=== PATIENT | female | born 1960 | race Caucasian/White ===

== ENCOUNTER 2025-01-02 13:31 | Inpatient (IN) ==
[2025-01-02 14:26] LABS: Hematocrit (blood only) 33.5 % (37.0-47.0); Hemoglobin 12.1 g/dL (12.0-16.0); Immature Granulocytes # (auto) 0.07 K/uL (0.01-0.20); Immature Granulocytes % (auto) 0.4 %; Mean Corpuscular Hemoglobin 37.1 pg (25.0-34.0); Mean Corpuscular Volume 102.8 fL (80.0-100.0); Platelet Count 235 K/uL (130-400); RDW Standard Deviation 56.8 fL (36.4-46.3); Red Blood Count 3.26 M/uL (4.20-5.40); White Blood Count 16.09 K/ul (4.8-10.8)
[2025-01-02 14:46] LABS: Alanine Aminotransferase 30.0 U/L (7-52); Albumin Globulin Ratio 0.5 (0.9-2); Albumin Level 2.6 gm/dl (3.4-5.0); Alkaline Phosphatase 143.0 U/L (34-104); Anion Gap 11.0 (3-11); Bilirubin,Total 5.7 mg/dl (0.2-1.0); Blood Urea Nitrogen 5.0 mg/dl (6-23); Calcium 8.4 mg/dl (8.6-10.3); Carbon Dioxide 21.0 mmol/L (21-32); Chloride 102.0 mmol/L (98-107); Creatinine Clr Calc Pharmacy 98.4 ml/min; Globulin 5.1 gm/dl (2.5-4.0); Glucose 94.0 mg/dl (70-99(Fasting)); Lipase 15.0 U/L (11-82); Potassium 3.4 mmol/L (3.5-5.1); Sodium 134.0 mmol/L (136-145); Total Protein 7.7 gm/dl (6.0-8.3)
[2025-01-02] MEDS: LIDOCAINE 1%/EPINEPHRINE 1:100,000 50 ML VIAL INFIL ONE (16:36)
[2025-01-02] MEDS: cefTRIAXone SODIUM 2,000 MG/50 ML BAG IV STA (16:36)
--- NOTE | 2025-01-02 16:58 | Emergency Department Note ---
Impression & Plan Decompensated hepatic cirrhosis, Abdominal pain, Alcoholic cirrhosis of liver with ascites, Hypervolemia, Hyponatremia, Hypokalemia, Hypoalbuminemia, Hyperbilirubinemia, Alcohol use disorder ED Provider Note NAME: MANISHA BLUM AGE: 64 SEX: F : 1960 ARRIVES VIA: Walk-In INFORMANT: Patient, sister ED PROVIDER(S): Alvaro Gomez DO CHIEF COMPLAINT: abnormal outpatient imaging HPI: This is a 64-year-old female with the PMHx of GERD, anxiety/depression and alcohol use disorder presenting to [facility] for further evaluation of abnormal outpatient imaging. Patient is accompanied by her sister who provide additional history. The patient states that she is here as she was advised by her primary care doctor to report to the emergency department for further evaluation. Patient notes that she has had abdominal pain and swelling over the course the last month. She also reports that the pain has worsened over the past few days. She states she now has lower extremity edema. Patient states she does not feel well. Patient states that she was told that she has cirrhosis and abnormal CT/ultrasound findings. Patient states she does have significant alcohol use disorder. She notes that she drinks 3 spritzer's in the afternoons and then she proceeds to drink red wine in the evening. She states that this is at least 4 large glasses of wine every night. Patient states that she last had a drink approximately 1 week ago. She states that she has never been in alcohol withdrawal before. She has never been admitted for such things. Patient states that her family and friends have noticed scleral icterus but she has not noticed her skin being yellow. They deny fever or chills. No cough or congestion. Denies chest pain or palpitations. No shortness of breath. They deny nausea and vomiting. No urinary complaints. No recent changes in bowel movements. Patient denies recent changes in medications or OTC supplements. Patient offers no other complaints, today. ADDITIONAL HISTORY OBTAINED: Per HPI Chronic Medical/Social Conditions Affecting Care: Per HPI PAST MEDICAL HISTORY: See Below PAST SURGICAL HISTORY: See Below FAMILY HISTORY: See Below SOCIAL HISTORY: See Below HOME MEDICATIONS: See Below ALLERGIES: See Below VITALS: See Below PHYSICAL EXAMINATION: GENERAL: Sitting up in bed, alert, well appearing, well nourished, no distress, non-toxic EYE EXAM: normal conjunctiva. PERRL and EOM's grossly intact. scleral icterus. OROPHARYNX: no exudate, no erythema, lips, buccal mucosa, and tongue normal and mucous membranes are moist NECK: supple, no nuchal rigidity, no adenopathy, non-tender LUNGS: Clear to auscultation. Normal chest wall mechanics HEART: no murmurs, regular rate, regular rhythm ABDOMEN: abdomen soft But distended with a positive fluid wave. Diffuse tenderness to palpation. No rebound or rigidity. BACK: Back is symmetrical on inspection and there is no deformity, no midline tenderness, no CVA tenderness. SKIN: no rashes and no bruising UPPER EXTREMITIES: upper extremities are grossly normal. I could not induce asterixis. LOWER EXTREMITIES: No pitting edema. NEURO EXAM: Normal sensorium, GCS 15, normal speech, no gross weakness of arms, no gross weakness of legs. MEDICAL DECISION MAKING: Differential diagnoses includes but not limited to new onset alcohol liver cirrhosis, SBP, fluid overload, decompensated liver cirrhosis complicated by ascites, hepatic encephalopathy, alcohol withdrawal syndrome, electrolyte derangements, dehydration, choledocholithiasis, cholangitis, CHF In summary, this is a 64 year old female who presented with abnormal outpatient imaging that is consistent with newly diagnosed alcoholic liver cirrhosis. Differential as above. Nursing notes and pertinent past medical records reviewed. Vital signs reviewed and the patient is afebrile and HDS. History and presentation revealed she has been working with her PCP for ongoing swelling of the lower extremities and abdomen. She now has abdominal pain. I did obtain [facility] records through care management for this patient. Patient has a new diagnosis of likely alcoholic liver cirrhosis. She has had imaging of her abdomen including a CT abdomen/pelvis as well as a liver ultrasound. Liver ultrasound shows nodularity of the hepatic contours consistent with cirrhosis. There is steatosis present. Splenomegaly noted. Does have cholelithiasis with moderate size ascites and dilated CBD to [address] abdomen/pelvis Confirm presence of cirrhotic liver with volume ascites and splenomegaly. There is an apparent splenic vein occlusion with varices. Radiology did recommend MRCP for further evaluation. Physical examination revealed diffuse lower extremity edema accompanied by abdominal distention and fluid wave. Patient's physical exam findings today are consistent with likely decompensated liver cirrhosis complicated by ascites. I am concerned for SBP. I discussed the risk and benefits of proceeding with a diagnostic paracentesis for further evaluation. The patient is agreeable to this. I do not however feel strongly about therapeutic paracentesis. The patient has never had this procedure performed before. I do feel that a diagnostic paracentesis is warranted rather than removing multiple amounts of fluid from the patient's abdomen. She would not be used to this procedure. I feel that diuresis would be an appropriate observation rather than removal of the ascites. Patient agreeable to this. While the patient does have dilatation of the CBD. I do not suspect Christine Hester cholelithiasis or cholangitis. She is not febrile. She does not appear infectious. I feel these findings on imaging are more likely to be related to her liver cirrhosis rather than acute pathology of the hepatobiliary system and gallstones. Patient will be covered with 2 g of ceftriaxone to cover SBP. If felt strongly regarding infectious pathology of the hepatobiliary system, the medicine team will be able to add on IV Flagyl for anaerobic coverage. I will order the patient's MRCP while in the emergency department. Diagnostics interpreted by me include cardiac monitoring as listed below: -Cardiac Monitoring: An order was placed for continuous cardiac monitoring. The monitor shows a rate of 80-90s with regular rhythm. Patient completed laboratory studies and imaging. Results independently interpreted by me are Leukocytosis present. The patient does not have acute anemia, MCV is elevated. Do believe this is likely findings related to her alcohol use disorder as well. She has multiple electrolyte derangements including minimal hyponatremia and hypokalemia. Kidney function is normal. She has elevation in bilirubin as well as AST and ALT. Patient has hypoalbuminemia present. Patient underwent paracentesis as below. This was diagnostic. She tolerated the procedure. Fluid sent for analysis. She was covered for SBP with 2 g of ceftriaxone. Patient does not need alcohol withdrawal treatment at this time as she stopped drinking approximately 1 week ago. She has no symptoms at this time. She is out of the window for acute alcohol withdrawal. Patient will need follow-up on further labs as well as her MRCP as an inpatient. Patient will likely need diuresis and initiation of medications to support her with new diagnosis of likely alcoholic liver cirrhosis. Ultimately, the decision was made to admit the patient for newly diagnosed alcoholic liver cirrhosis with concerns for decompensation complicated by ascites and possible SBP. I discussed the case with the hospitalist service via telephone/Tiger[employer] and they are agreeable to admit the patient to their services. Based on the above, including the patient's age, coexisting illnesses, labs, imaging, and exam findings the decision to treat as an inpatient. I discussed the patient with the hospitalist team who recommended admission to their services. They received the medications, treatments, interventions indicated above and their condition remained gaurded. I discussed my findings with the patient and their family and they understand and agree with the treatment plan. All patient / family questions were answered to their satisfaction. Consults/Care Managements Discussions: Per MDM ER treatment provided: See above Procedures: Diagnostic paracentesis noted as below. Critical Care: None The chart was completed utilizing [employer] voice recognition software. Grammatical errors, random word insertions, pronoun errors, and incomplete sentences are an occasional consequence of this system due to software limitations, ambient noise, and hardware issues. Any formal questions or concerns about the content, text, or information contained within the body of this dictation should be directly addressed to the physician for clarification. Past Med/Surg History Problem List (Updated 01/05/25 @ 14:34 by Alvaro Gomez DO) Alcohol use disorder (Acute) Hyperbilirubinemia (Acute) Hypoalbuminemia (Acute) Hypokalemia (Acute) Hyponatremia (Acute) Hypervolemia (Acute) Alcoholic cirrhosis of liver with ascites (Acute) Abdominal pain (Acute) Decompensated hepatic cirrhosis (Acute) Alcohol abuse Alcoholic cirrhosis Abdominal pain Surgical History (Updated 01/02/25 @ 18:04 by ROBERT Shearer) No pertinent past surgical history Family History (Updated 01/02/25 @ 18:05 by ROBERT Shearer) Sister Hypertension Social History Smoking Status: Never smoker Hx Alcohol Use: Yes Alcohol type: wine Hx Substance Use: No Preferred Language: Tunisian Communication Ability: Unable Resaw Carriage Operator Required: No Beliefs That Will Affect Care: None Current Living Situation: Alone Feels Safe at Home: Yes Assistive Devices: None Allergies Allergies Allergy/AdvReac Type Severity Reaction Status Date / Time No Known Allergies Allergy Unverified 01/02/25 17:13 Home Meds Home Medications Medication Instructions Recorded Confirmed escitalopram oxalate 10 mg tablet 10 mg PO QAM 01/02/25 01/02/25 omeprazole 20 mg capsule,delayed 20 mg PO DAILYBB 01/02/25 01/02/25 release Previous Rx's Medication Instructions Recorded furosemide 20 mg tablet 20 mg PO QAM #30 tabs 01/05/25 lactulose 10 gram/15 mL oral 20 g (30 mL) PO DAILY #473 mL 01/05/25 solution potassium chloride 10 mEq 10 meq PO DAILY #30 tabs 01/05/25 tablet,extended release spironolactone 50 mg tablet 50 mg PO DAILY #30 tabs 01/05/25 Results & Data (ED) Vital Signs Vital Signs - 24 hr 01/02/25 13:38 01/02/25 16:54 Temperature 36.9 C Temperature Source Temporal Artery Scan Pulse Rate 92 H 93 H Respiratory Rate 18 Respiratory Effort / Characteristics Non-Labored Spontaneous Respiratory Depth Normal Respiratory Pattern Regular Blood Pressure 140/77 Blood Pressure Mean 98 Blood Pressure Position Sitting Pulse Oximetry 99 Oxygen Delivery Method Room Air Sepsis Recent Fever Within 48 Hours No Sepsis New/Unexplained Change in Mental Status N/A Sepsis Action Taken by Nursing No Action Required Laboratory Data 01/05/25 06:16 01/05/25 06:16 Lab Results 01/02/25 01/02/25 Range/Units 14:04 16:55 WBC 16.09 H (4.8-10.8) K/ul RBC 3.26 L (4.20-5.40) M/uL Hgb 12.1 (12.0-16.0) g/dL Hct 33.5 L (37.0-47.0) % MCV 102.8 H (80.0-100.0) fL MCH 37.1 H (25.0-34.0) pg MCHC 36.1 H (32.0-36.0) g/dL RDW Std Deviation 56.8 H (36.4-46.3) fL RDW Coeff of Tala 15.0 H (11.5-14.5) % Plt Count 235 (130-400) K/uL MPV 9.9 (9.4-12.4) fL Immature Gran % (Auto) 0.4 % Neut % (Auto) 77.5 % Lymph % (Auto) 9.6 % Kaufman % (Auto) 10.8 % Eos % (Auto) 0.8 % Baso % (Auto) 0.9 % Neut # (Auto) 12.48 H (1.40-6.50) K/uL Lymph # (Auto) 1.54 (1.20-3.40) K/uL Kaufman # (Auto) 1.73 H (0.11-0.59) K/uL Eos # (Auto) 0.13 (0.00-0.50) K/uL Baso # (Auto) 0.14 (0.00-0.20) K/uL Immature Gran # (Auto) 0.07 (0.01-0.20) K/uL Sodium 134 L (136-145) mmol/L Potassium 3.4 L (3.5-5.1) mmol/L Chloride 102 (98-107) mmol/L Carbon Dioxide 21 (21-32) mmol/L Anion Gap 11 (3-11) BUN 5 L (6-23) mg/dl Creatinine 0.62 (0.6-1.2) mg/dl Est Cr Clr Drug Dosing 98.4 ml/min eGFR 100.00 BUN/Creatinine Ratio 8.1 L (10-20) Glucose 94 (70-99(Fasting)) mg/dl Calcium 8.4 L (8.6-10.3) mg/dl Total Bilirubin 5.7 H (0.2-1.0) mg/dl Direct Bilirubin 2.5 H (0-0.2) mg/dl AST 94 H (13-39) U/L ALT 30 (7-52) U/L Alkaline Phosphatase 143 H (34-104) U/L Total Protein 7.7 (6.0-8.3) gm/dl Albumin 2.6 L (3.4-5.0) gm/dl Globulin 5.1 H (2.5-4.0) gm/dl Albumin/Globulin Ratio 0.5 L (0.9-2) Lipase 15 (11-82) U/L Fluid Neutrophils % 8 % Fluid Lymphocytes % 10 % Fluid Meso/Macro/Kaufman % 82 % Fluid Comment Peritoneal Color Yellow Peritoneal Appearance Clear Peritoneal WBC (Auto) 227 (0-300) /ul Peritoneal RBC (Auto) < 2000 /uL Peritoneal Tot Protein < 3.0 gm/dl Peritoneal Albumin < 1.5 gm/dl Ethyl Alcohol mg/dL < 10.0 (<10.0) mg/dl Hep Bs Antigen Negative (Negative) Hepatitis C Antibody Negative (Negative) Administered Medications Discontinued Medications Escitalopram Oxalate (Escitalopram Oxalate 10 Mg Tab) 10 mg PO QAM NIDIA Stop: 02/02/25 08:59 Last Admin: 01/05/25 08:49 Dose: 10 mg Documented By: Admin: 01/04/25 07:55 Dose: 10 mg Documented By: mahogany Admin: 01/03/25 08:34 Dose: 10 mg Documented By: mahogany Furosemide (Furosemide 20 Mg Tab) 20 mg PO QAM NIDIA Stop: 02/03/25 09:59 Last Admin: 01/05/25 08:48 Dose: 20 mg Documented By: Admin: 01/04/25 07:55 Dose: 20 mg Documented By: mahogany Ceftriaxone Sodium (Rocephin) 2,000 mg in 50 mls @ 100 mls/hr IV NOW STA Stop: 01/02/25 16:50 Last Infusion: 01/02/25 17:34 Dose: Infused Documented By: jim Admin: 01/02/25 16:36 Dose: 100 mls/hr Documented By: SOULEYMANE Pantoprazole Sodium (Protonix) 40 mg in 10 mls @ 5 mls/min IV BID NIDIA Stop: 02/02/25 08:59 Last Admin: 01/03/25 08:34 Dose: 5 mls/min Documented By: mahogany Pantoprazole Sodium (Protonix) 40 mg in 10 mls @ 5 mls/min IV NOW STA Stop: 01/02/25 18:05 Last Admin: 01/02/25 18:21 Dose: 5 mls/min Documented By: jim Lactulose (Lactulose Syrup 20 Gm/30 Ml Udc) 20 gm PO DAILY NIDIA Stop: 02/02/25 09:59 Last Admin: 01/05/25 08:47 Dose: 20 gm Documented By: Admin: 01/04/25 07:50 Dose: Not Given Documented By: mahogany Admin: 01/03/25 10:54 Dose: 20 gm Documented By: mahogany Lidocaine/Epinephrine (Lidocaine 1%/Epinephrine 1:100,000 50 Ml Vial) 50 ml INFIL NOW ONE Stop: 01/02/25 16:27 Last Admin: 01/02/25 16:36 Dose: 50 ml Documented By: [id number] Pantoprazole Sodium (Pantoprazole 40 Mg Tab) 40 mg PO QAM NIDIA Stop: 02/03/25 08:59 Last Admin: 01/05/25 08:48 Dose: 40 mg Documented By: Admin: 01/04/25 07:55 Dose: 40 mg Documented By: mahogany Phytonadione (Phytonadione 5 Mg Tab) 10 mg PO NOW ONE Stop: 01/03/25 12:27 Last Admin: 01/03/25 13:24 Dose: 10 mg Documented By: mahogany Phytonadione (Phytonadione 5 Mg Tab) 10 mg PO ONE ONE Stop: 01/04/25 13:01 Last Admin: 01/04/25 14:19 Dose: 10 mg Documented By: mahogany Potassium Chloride (Potassium Chloride Crtab 20 Meq Tabcr) 40 meq PO NOW STA Stop: 01/02/25 17:27 Last Admin: 01/02/25 17:34 Dose: 40 meq Documented By: jim Potassium Chloride (Potassium Chloride Crtab 20 Meq Tabcr) 40 meq PO NOW STA Stop: 01/05/25 07:23 Last Admin: 01/05/25 08:48 Dose: 40 meq Documented By: CJ Spironolactone (Spironolactone 25 Mg Tab) [facility] Stop: 02/03/25 09:59 Last Admin: 01/05/25 08:47 Dose: 50 mg Documented By: Admin: 01/04/25 07:54 Dose: 50 mg Documented By: mahogany Imaging Data Radiologist's Impression: Cholangiopancreatography MRI 01/02/25 16:26 Exam(s): MRI MRCP EXAM: MR Abdomen Without Intravenous Contrast, MRCP Protocol CLINICAL HISTORY: Reason for exam: Eval for transaminitis, CBD, likely alcoholic liver. TECHNIQUE: Multiplanar magnetic resonance images of the abdomen without intravenous contrast using MRCP protocol. COMPARISON: No relevant prior studies available. FINDINGS: Exam is limited due to motion artifact. Exam is further limited due to lack of contrast. Bile ducts: The common bile duct measured 5 mm stone. No definite filling defect is noted.. Gallbladder: The gallbladder is distended containing a filling defects.. Liver: The liver is enlarged and of diffuse signal abnormality. There are rounded lesions within the liver, the largest of which measures 1.5 cm.. Pancreas: . No ductal dilation. Spleen: No splenomegaly. Adrenals: The adrenal glands are not clearly visualized. Kidneys and ureters: No hydronephrosis. Stomach and bowel: There is a small hiatal hernia. The stomach is decompressed. There is air and stool noted in the colon. Fluid: There is a large amount of free fluid in the upper abdomen. Soft tissues: There is soft tissue edema noted.. IMPRESSION: Limited exam. The gallbladder is distended containing calculi. The liver is enlarged and of diffuse signal at mild which may be due to fatty infiltration and/or hepatocellular disease. Lesions within the liver may represent cysts. Other possibilities cannot be excluded on this noncontrast study. Ascites. There is a small hiatal hernia. Possible anasarca. Electronically signed by: Niles Collins MD 01/03/25 01:02 AM Discharge Plan Visit Data Chief Complaint: Referred by Doctor Stated Complaint: REF BY DOC, CIROSIS OF THE LIVER ED Provider: Alvaro Gomez Discharge Problem: Decompensated hepatic cirrhosis, Abdominal pain, Alcoholic cirrhosis of liver with ascites, Hypervolemia, Hyponatremia, Hypokalemia, Hypoalbuminemia, Hyperbilirubinemia, Alcohol use disorder Patient Disposition: Admitted As Inpatient Condition: Serious Discharge Instructions Interventions: ED Discharge Assessment Last Done: 01/02/25 19:24 Procedures Paracentesis Time Out Performed: Yes Local Anesthetic: lidocaine 1% Amount of anesthesia used (mL): 3 Fluid: cloudy and sent to lab for analysis Post Procedure Exam: awake, alert, normal BP, normal HR and normal SpO2 Patient Tolerated Procedure: well and no complications Complications: none
[2025-01-02 17:25] LABS: Appearance Peritoneal Fluid Clear; Color Peritoneal Fluid Yellow; RBC Peritoneal Fluid Auto < 2000 /uL; WBC Peritoneal Fluid Auto 227 /ul (0-300)
--- NOTE | 2025-01-02 17:31 | History & Physical Report ---
Date of Service January 02, 2025 Assessment & Plan (1) SBP (spontaneous bacterial peritonitis): (2) Abdominal pain: (3) Alcoholic cirrhosis: (4) Alcohol abuse: Plan 64F with newly diagnosed alcoholic cirrhosis with SBP presents as recc by her PCP; diagnostic paracentesis performed in ED; started on IV Rocephin, Protonix. MRCP ordered; NPO and GI Consult. #Alcohol Cirrhosis with SBP: #Abdominal pain: Leukocytosis 16.09; check lactate CTAP indicative of cirrhotic liver and portal hypertension; moderate ascites and splenomegaly Diagnostic paracentesis; 100cc removed in ED and sent for path Rocephin started in ED; continue for now and adjust as needed TBili 5.7, Direct Bili 2.5 MRCP ordered Protonix 40 mg IV BID ordered GI Consult placed #Hypokalemia: Serum K+ 3.4; replace with 40mEq PO Trend BMP in AM #Depression: Takes Lexapro; continue #GERD: Takes omeprazole; hold Disposition: PCP: Dr. Davis Code Status: Full VTE Prophylaxis: Teds and SCD's for now I spent a total of 79 minutes coordinating, documenting, and providing care for this patient excluding time spent inthe performance of separately billed services or time spent by another provider/QHP. History of Present Illness Chief Complaint: abdominal pain Primary Care Provider: Dasia Davis MD Ms. Limon is a 64 year old female that presented to the [facility] as recommended by her PCP Dr. Davis. She has newly diagnosed alcoholic liver cirrhosis. She has moderate ascites, jaundice, splenomegaly, and dilated CBD measuring 7mm. Additional PMH includes alcohol abuse, depression and GERD. Reportedly, she states that she started to have abdominal bloating and generalized abdominal pain with bilateral lower extremity swelling a few weeks ago, prompting her to go to her PCP. In the ED, she has leukocytosis 16.09, Total Bilirubin 5.4, Direct Bilirubin 2.5, hypokalemia 3.4. A CTAP was performed on 12/30 as an outpatient and indicative of cirrhotic liver and portal hypertension; moderate ascites and splenomegaly She reportedly has drank 2-3 spritzers in the early afternoon followed by ONE bottle of wine nightly for the last decade; having not missed many days of drinking. Her last drink was 7 days ago. She has not had any symptoms of alcohol withdrawal; no tremors, or agitation. She does not have the urge to drink at this time. She wishes to stop completely and was unaware of how things were progressing negatively. On examination she is AAOx3, able to hold meaningful conversation, has jaundiced sclera; leathery skin, ankle edema, Lungs CTA, faint S1/S2, (+) fluid wave test Patient will be admitted for further evaluation and management of her alcohol cirrhosis with SBP; continue IV Rocephin, Protonix IV, Hepatitis panel, replenish K+, keep NPO for now, MRCP ordered and formal GI Consult placed. Please see A/P for further details. Allergies Allergy/AdvReac Type Severity Reaction Status Date / Time No Known Allergies Allergy Unverified 01/02/25 17:13 Home Medications Medication Instructions Recorded Confirmed Type escitalopram oxalate 10 mg tablet 10 mg PO QAM 01/02/25 01/02/25 History omeprazole 20 mg capsule,delayed 20 mg PO DAILYBB 01/02/25 01/02/25 History release Past Med/Surg History Problem List (Updated 01/02/25 @ 17:29 by ROBERT Shearer) Alcohol abuse Alcoholic cirrhosis Abdominal pain SBP (spontaneous bacterial peritonitis) Surgical History (Updated 01/02/25 @ 18:04 by ROBERT Shearer) No pertinent past surgical history Family History (Updated 01/02/25 @ 18:05 by ROBERT Shearer) Sister Hypertension Social History Smoking Status: Never smoker Preferred Language: Qatari Feels Safe at Home: Yes Review of Systems Review of Systems: Neuro: (-) Falls, trauma, slurred speech HEENT: (-) CASTELLANO, dizziness, dysphagia, visual or auditory changes CV: (-) CP, palpitations, (+) LE swelling Resp: (-) SOB GI: (-) appetite changes, N/V/D, bowel changes : (-) urinary changes Skin: (-) rashes Psych: (-) anxiety, depression Physical Exam Physical Exam: Neuro: AAOx4, PERRLA, no aphagia, memory changes, CNII-XII grossly intact (+) sclera jaundice HEENT: head normocephalic, moist mucus membranes CV: S1/S2, (-) M/G/R, (+) LE BL edema, cap refill < 3 seconds Resp: Lungs CTA in all bowens. On RA GI: Abdomen distended, tender on palpation, (+) fluid wave test, Ax4 bowel sounds, (-) CVA tenderness Musculoskeletal: 5/5 B/L UE strength, 5/5 B/L LE strength. No gait disturbance Skin: (-) rashes , (-) erythema. (+) leathery skin Psych: euthymic mood Results & Data Results & Data Vital Signs (Past 12 Hours) Vital Signs Temp Pulse Resp BP Pulse Ox O2 Del Method 01/02/25 16:54 93 H 01/02/25 13:38 36.9 C 92 H 18 140/77 99 Room Air Laboratory Results Short CBC 01/02/25 Range/Units 14:04 WBC 16.09 H (4.8-10.8) K/ul Hgb 12.1 (12.0-16.0) g/dL Hct 33.5 L (37.0-47.0) % Plt Count 235 (130-400) K/uL BMP 01/02/25 14:04 Sodium 134 L Potassium 3.4 L Chloride 102 Carbon Dioxide 21 BUN 5 L Creatinine 0.62 Glucose 94 Calcium 8.4 L Liver Function 01/02/25 Range/Units 14:04 Total Bilirubin 5.7 H (0.2-1.0) mg/dl Direct Bilirubin 2.5 H (0-0.2) mg/dl AST 94 H (13-39) U/L ALT 30 (7-52) U/L Alkaline Phosphatase 143 H (34-104) U/L Albumin 2.6 L (3.4-5.0) gm/dl Code Status & VTE Plan Code Status Full Code in the event of cardiac or respiratory arrest VTE Prophylaxis Plan VTE Prophylaxis will be ordered: Yes Supervising Physician Co-Signing Physician Notes patient comes in due to recommendation from PCP due to concern of newly diagnosed alcoholic cirrhosis and SBP. Continue with PPI and Rocephin. Follow- up abdominal fluid studies and culture. Consult GI. Monitor and replete electrolytes. On exam: Patient on room air, 2+ BLE edema, abdomen with healed surgical scar, distended abdomen, epigastric tenderness on exam. Rest of examination as above. Total time spent independently: 21 minutes. I have seen and examined the patient and have discussed the case with the provider above. I agree with the assessment and plan as stated.
[2025-01-02] MEDS: POTASSIUM CHLORIDE CRTAB 20 MEQ TABCR PO STA (17:34)
[2025-01-02 17:58] LABS: Albumin Peritoneal Fluid < 1.5 gm/dl
[2025-01-02] MEDS: PANTOprazole 40 MG/10 ML SYR IV STA (18:21)
[2025-01-02 19:24] LABS: Hep B Surface Ag with confirm Negative (Negative)
[2025-01-02 19:29] LABS: Hep C Ab Rflx HepCQuant RNA Negative (Negative)
[2025-01-02] MEDS ORDERED: POLYETHYLENE (MIRALAX) 17 GM PACK PO PRN (19:49)
[2025-01-02] MEDS ORDERED: ACETAMINOPHEN 325 MG TAB PO PRN (19:49)
[2025-01-02] MEDS ORDERED: ONDANSETRON INJ 2 MG/ML 2 ML VIAL IV PRN (19:49)
[2025-01-02] MEDS ORDERED: MAGNESIUM HYDROXIDE SUSP 30 ML UDC PO PRN (19:49)
--- NOTE | 2025-01-03 01:03 | Magnetic Resonance Report ---
Exam(s): MRI MRCP EXAM: MR Abdomen Without Intravenous Contrast, MRCP Protocol CLINICAL HISTORY: Reason for exam: Eval for transaminitis, CBD, likely alcoholic liver. TECHNIQUE: Multiplanar magnetic resonance images of the abdomen without intravenous contrast using MRCP protocol. COMPARISON: No relevant prior studies available. FINDINGS: Exam is limited due to motion artifact. Exam is further limited due to lack of contrast. Bile ducts: The common bile duct measured 5 mm stone. No definite filling defect is noted.. Gallbladder: The gallbladder is distended containing a filling defects.. Liver: The liver is enlarged and of diffuse signal abnormality. There are rounded lesions within the liver, the largest of which measures 1.5 cm.. Pancreas: . No ductal dilation. Spleen: No splenomegaly. Adrenals: The adrenal glands are not clearly visualized. Kidneys and ureters: No hydronephrosis. Stomach and bowel: There is a small hiatal hernia. The stomach is decompressed. There is air and stool noted in the colon. Fluid: There is a large amount of free fluid in the upper abdomen. Soft tissues: There is soft tissue edema noted.. IMPRESSION: Limited exam. The gallbladder is distended containing calculi. The liver is enlarged and of diffuse signal at mild which may be due to fatty infiltration and/or hepatocellular disease. Lesions within the liver may represent cysts. Other possibilities cannot be excluded on this noncontrast study. Ascites. There is a small hiatal hernia. Possible anasarca. Electronically signed by: Niles Collins MD 01/03/25 01:02 AM
[2025-01-03 06:01] LABS: Hematocrit (blood only) 28.1 % (37.0-47.0); Hemoglobin 10.1 g/dL (12.0-16.0); Mean Corpuscular Hemoglobin 37.0 pg (25.0-34.0); Mean Corpuscular Volume 102.9 fL (80.0-100.0); Platelet Count 191 K/uL (130-400); RDW Standard Deviation 55.0 fL (36.4-46.3); Red Blood Count 2.73 M/uL (4.20-5.40); White Blood Count 12.50 K/ul (4.8-10.8)
[2025-01-03 06:23] LABS: Anion Gap 9.0 (3-11); Blood Urea Nitrogen 5.0 mg/dl (6-23); Calcium 8.0 mg/dl (8.6-10.3); Carbon Dioxide 22.0 mmol/L (21-32); Chloride 105.0 mmol/L (98-107); Creatinine Clr Calc Pharmacy 106.4 ml/min; Glucose 80.0 mg/dl (70-99(Fasting)); Magnesium 2.0 mg/dl (1.7-2.4); Potassium 3.8 mmol/L (3.5-5.1); Sodium 136.0 mmol/L (136-145)
[2025-01-03 08:30] LABS: Lymphocytes, Fluid 10 %; Mono,Macrophage,Mesothelial 82 %; Neutrophils, Fluid 8 %
[2025-01-03] MEDS: PANTOprazole 40 MG/10 ML SYR IV SCH (08:34)
[2025-01-03] MEDS: ESCITALOPRAM OXALATE 10 MG TAB PO SCH (08:34)
[2025-01-03 09:27] LABS: Appearance Urine Slightly Cloudy (Clear); Glucose Urine UA Trace (Negative)
[2025-01-03 09:36] LABS: Epithelial Cell Urine >20 /hpf (0-2)
--- NOTE | 2025-01-03 09:55 | Hospitalist Progress Note ---
Date of Service January 03, 2025 Assessment & Plan (1) SBP (spontaneous bacterial peritonitis): (2) Abdominal pain: (3) Alcoholic cirrhosis: (4) Alcohol abuse: Plan 64F with newly diagnosed alcoholic cirrhosis with SBP presents as recc by her PCP; diagnostic paracentesis performed in ED; started on IV Rocephin, Protonix. MRCP ordered; NPO and GI Consult. #Alcohol Cirrhosis -Diagnosed on admission -Drinks about 7-8 alcoholic beverages per day. last drink was over a week ago -Low suspicion for alcoholic hepatitis. PT/INR not yet checked but suspect a low Maddrey's discriminant function score -Cannot calculate MELD score either without PT/INR -T bili 5.7 -S/p diagnostic paracentesis on 12/23 -Peritoneal fluid with only 8% PMNs, WBC 227 -Typically with bacterial peritonitis, PMNs are around 50% with WBC >230 -Low suspicion for SBP at this time. She also lacks any significant abd pain, fever -However she does have leukocytosis, albeit improving, without a clear explanation -No asterixis or confusion to suggest hepatic encephalopathy -No s/s acute blood loss to suggest variceal bleeding Plan -Continue CTX until peritoneal fluid culture returns. If negative for growth, this will r/o peritonitis -Start aldactone/lasix with a ratio of 5/2--- aldactone 50mg daily+ lasix 20mg daily if blood pressure tolerates. Holding parameters placed -Start lactulose with goal of 2-3 loose BMs per day -She will need OP endoscopy for variceal surveillance -Check INR, CMP -Appreciate GI input. she will need to f/u with GI as OP -Resume diet. no indication for emergent endoscopy -Can stop IV protonix #Alcohol abuse -Last drink 1 week ago -Out of withdrawal window and no s/s withdrawal -She stated she will completely stop drinking #GERD -PPI I spent a total of 53 minutes coordinating, documenting, and providing care for this patient excluding time spent in the performance of separately billed services. This included personally reviewing all current laboratories and imaging studies, medical reconciliation, outpatient chart review and discussion with specialists Admission and Anticipated Discharge Date Admission Date: January 02, 2025 Subjective Feeling well today. hungry and wants to eat. Patient denies F/C, CP, palpitations, SOB, dyspnea, abd pain, N/V/D hematemesis melena brbpr Physical Exam Physical Exam: Vitals and labs reviewed General: Well appearing, NAD HEENT: EOMI, PERRLA Neck: Supple Cardiac: RRR no rubs gallops or murmurs Lungs: CTA no rhonchi wheezing or rales Abd: mild distention. No TTP. pos bowel sounds : Deffered MSK: Full ROM. No obvious deformities Ext: No Edema cyanosis Skin: Warm, Dry. slight jaundice Neuro: AOx3 No focal deficits. no asterixis Psych: Normal Mood Results & Data Results & Data Vital Signs (Past 12 Hours) Vital Signs Temp Pulse Pulse Resp BP BP Pulse Ox 01/03/25 08:00 87 01/03/25 07:32 36.6 C 92 H 16 98/60 L 100/47 L 95 01/03/25 03:02 36.8 C 89 16 100/65 96 01/02/25 22:30 36.8 C 86 20 106/62 96 O2 Del Method 01/03/25 08:00 01/03/25 07:32 Room Air 01/03/25 03:02 Room Air 01/02/25 22:30 Room Air Laboratory Results Abnormal lab results 01/02/25 01/03/25 01/03/25 Range/Units 14:04 05:20 08:57 WBC 16.09 H 12.50 H (4.8-10.8) K/ul RBC 3.26 L 2.73 L (4.20-5.40) M/uL Hgb 10.1 L (12.0-16.0) g/dL Hct 33.5 L 28.1 L (37.0-47.0) % MCV 102.8 H 102.9 H (80.0-100.0) fL MCH 37.1 H 37.0 H (25.0-34.0) pg MCHC 36.1 H (32.0-36.0) g/dL RDW Std Deviation 56.8 H 55.0 H (36.4-46.3) fL RDW Coeff of Tala 15.0 H 14.9 H (11.5-14.5) % Neut # (Auto) 12.48 H (1.40-6.50) K/uL [place] # (Auto) 1.73 H (0.11-0.59) K/uL Sodium 134 L (136-145) mmol/L Potassium 3.4 L (3.5-5.1) mmol/L BUN 5 L 5 L (6-23) mg/dl Creatinine 0.58 L (0.6-1.2) mg/dl BUN/Creatinine Ratio 8.1 L 8.6 L (10-20) Calcium 8.4 L 8.0 L (8.6-10.3) mg/dl Total Bilirubin 5.7 H (0.2-1.0) mg/dl Direct Bilirubin 2.5 H (0-0.2) mg/dl AST 94 H (13-39) U/L Alkaline Phosphatase 143 H (34-104) U/L Albumin 2.6 L (3.4-5.0) gm/dl Globulin 5.1 H (2.5-4.0) gm/dl Albumin/Globulin Ratio 0.5 L (0.9-2) Urine Protein 2+ H (Negative) Urine Glucose (UA) Trace H (Negative) Urine Ketones 2+ H (Negative) Urine Blood Trace-intact H (Negative) Urine Bilirubin 3+ H (Negative) Urine Urobilinogen Positive H (Negative) Urine RBC 3-5 H (0-2) /hpf Ur Epithelial Cells >20 H (0-2) /hpf Urine Bacteria 1+ H (None Seen) Urine Mucus Present A (None Prsent)
[2025-01-03] MEDS ORDERED: SPIRONOLACTONE 25 MG TAB PO SCH (10:00)
[2025-01-03] MEDS ORDERED: FUROSEMIDE 20 MG TAB PO SCH (10:00)
[2025-01-03 10:35] LABS: INR 2.0 (0.9-1.1); Prothrombin Time 20.3 Seconds (9.0-12.0)
[2025-01-03] MEDS: LACTULOSE SYRUP 20 GM/30 ML UDC PO SCH (10:54)
--- NOTE | 2025-01-03 12:01 | Gastrointestinal Consultation ---
Date of Consultation January 03, 2025 Assessment & Plan (1) Alcoholic cirrhosis: (2) Alcohol abuse: Plan 64yowf with h/o alcohol abuse anxiety and GERD is seen today on GI inpatient rounds for diagnosis of alcoholic cirrhosis, SBP and CBD stones. Clinically she reports a progression of abdominal pain, jaundice and anasarca over the last [address] abd/pelvis, US consistent with cirrhosis and portal hypertension. GI was consulted regarding new onset cirrhosis/Alcoholic hepatitis, SBP and CBD stones. (1) ? CBD stones - No stones within the duct noted on personal read of MRCP - Reviewed imaging studies with attending parts counter representative. NO CBD stones identified on MRCP review. (2) ? SBP - Unlikely - PMNs 18. No growth noted on culture thus far. Therefore agree with hospitalist that this unlikely to be consistent with SBP. - We can stop empiric Rocephin. Order DCd. (3) Alcoholic Cirrhosis/? Alcoholic Hepatitis. - Maddrey Discriminant Score 43 r/t elevated PT and Bilirubin. - MELD Na 22. - Recommend Vitamin K 10mg PO once daily x 2 days, then repeat PT/INR and LFTs for re-calculation of Maddrey discriminant score and MELD. HOLD OFF on steroids for now. - Continue with Spironolactone 50mg/day and Lasix 20mg/day for ascites/fluid management. Follow < 2G sodium diet. - No prior or current history of hepatic encephalopathy or confusion. No asterixis. - We'll obtain alpha fetoprotein to bring HCC surveillance UTD. - Would recommend EGD as outpatient for variceal screening. - We'll continue to follow along with labs with further recommendations to follow. - Thank you for allowing us to participate in the care of this patient. Please call with any acute changes, questions or concerns. Please see addendum below with additional recommendation from my supervising physician. Over 60 minutes was spent in chart review, examination and documentation on date of service Supervising Physician Co-Signing Physician Notes Reviewed above discussed with TRICIA Gupta.... Probably alcoholic cirrhosis. With a acute alcoholic hepatitis. Ascites is a transudate without SBP. Outpatient study suggests splenic vein thrombosis. This is not a common isolated finding in cirrhosis which would be more typical portal vein thrombosis. Reimage with ultrasound Dopplers. Also she has fairly focal right upper quadrant discomfort which she can point to with 1 finger. Alcoholic hepatitis can be associated with right upper quadrant tenderness. There are stones in the gallbladder on MRI. Reimage the gallbladder with ultrasound. Cholecystectomy to face acute alcoholic hepatitis though should be discouraged. Gallbladder wall thickening typical in this situation and related to the hepatitis rather than primary acute cholecystitis Patient has a high discriminatory factor. Typically we would not start steroids till a 48-hour period. Hyperbilirubinemia and coagulopathy which go into the calculation of the discriminatory factor often improve in the first 48 hours. We did have given her some vitamin K. Hepatitis screens pending. Though patient's alcohol ingestion is consistent with a etiology for her pancreatitis. May need further paracentesis in the next day or 2. Needs to abstain from alcohol long-term patient aware. Patient also will require an outpatient EGD at some point evaluate for esophageal varices History of Present Illness Reason for Consultation: Alcoholic cirrhosis with SBP and CBD Attending Physician: Anuj Hunt DO History of Present Illness 64yowf with h/o alcohol abuse anxiety and GERD is seen today on GI inpatient rounds for diagnosis of alcoholic cirrhosis, SBP and CBD stones. She reports that she started to feel well over the last 3 weeks with jaundice, increased abdominal pain pain in right upper quadrant, increased abdominal girth and edema. Symptoms gradually progressed in severity during that time. She saw her PCP at [facility] where they completed an US and CT scan of abdomen that revealed concerns of ascites and cirrhosis so she was recommended to come to ER. ER notes are in draft status at this time. Reviewed ER work up which consisted of MRCP without contrast. Which revealed CBD 5mm. No stone was noted within the duct per attending Back Padder read. Distended gallbladder with cholelithiasis. Nodular contour of liver consistent with liver cirrhosis/hepatocellular disease. CT abd/pelvis with and without contrast and US completed at [facility] 12/30/24 revealing 3.5cm low density nonenhancing area abutting the intrahepatic IVC favored to reflect a more pronounced area of hepatic steatosis. No arterial enhancing lesions. CBD 7mm. Cholelithiasis. Moderate volume ascites. Apparent splenic vein thrombosis. Pancreas unremarkable. Subtle hepatic contour nodularity suggesting cirrhosis. Spleen 15.4cm. Intrabdominal varices and mildly enlarged lymph nodes noted as well consistent with cirrhosis and portal hypertension. She denies any vomiting, melena, hematochezia, steatorrhea. Family history - No liver disease or CA. Social History - Drinking 7 glasses wine or coolers a day most of her adult life. No tobacco or drug use. Surgical History - Appendectomy. Hysterectomy. No C sections. CBC Hgb 10.1, Hct 28.1 Platelet 191 WBC 12.5. Peritoneal fluid - WBCs - 227. 8% Neutrophils. PMNs 18. No growth noted on cultures thus far. INR 2.0 PT 20.3s T-Bili 5.7 Maddreys Discriminant Score 43.9 - Poor Prognosis MELD - 22 Creatinine - 0.58 Na- 136 AST 94 ALT 30 Alkaline Phosphatase 143. Albumin 2.6 Lipase 15 Ammonia 45. Hepatitis Bs Ag negative. Hepatitis C negative Hepatitis B core Ab negative. Hepatitis A pending. MRCP 01/02/25 FINDINGS: Exam is limited due to motion artifact. Exam is further limited due to lack of contrast. Bile ducts: The common bile duct measured 5 mm stone. No definite filling defect is noted.. ( Reviewed with attending Back Padder - No stone seen). Gallbladder: The gallbladder is distended containing a filling defects.. Liver: The liver is enlarged and of diffuse signal abnormality. There are rounded lesions within the liver, the largest of which measures 1.5 cm.. Pancreas: . No ductal dilation. Spleen: No splenomegaly. Adrenals: The adrenal glands are not clearly visualized. Kidneys and ureters: No hydronephrosis. Stomach and bowel: There is a small hiatal hernia. The stomach is decompressed. There is air and stool noted in the colon. Fluid: There is a large amount of free fluid in the upper abdomen. Soft tissues: There is soft tissue edema noted.. IMPRESSION: Limited exam. The gallbladder is distended containing calculi. The liver is enlarged and of diffuse signal at mild which may be due to fatty infiltration and/or hepatocellular disease. Lesions within the liver may represent cysts. Other possibilities cannot be excluded on this noncontrast study. Ascites. There is a small hiatal hernia. Possible anasarca. Patient reportedly had a CT scan [facility] prior to arrival. Records requested. Allergies Allergy/AdvReac Type Severity Reaction Status Date / Time No Known Allergies Allergy Unverified 01/02/25 17:13 Home Medications Medication Instructions Recorded Confirmed Type escitalopram oxalate 10 mg tablet 10 mg PO QAM 01/02/25 01/02/25 History omeprazole 20 mg capsule,delayed 20 mg PO DAILYBB 01/02/25 01/02/25 History release Patient History Surgical History (Updated 01/02/25 @ 18:04 by ROBERT Shearer) No pertinent past surgical history Family History (Updated 01/02/25 @ 18:05 by ROBERT Shearer) Sister Hypertension Social History Smoking Status: Never smoker Hx Alcohol Use: Yes Alcohol type: wine Hx Substance Use: No Preferred Language: Somali Communication Ability: Unable Drill Instructor Required: No Beliefs That Will Affect Care: None Current Living Situation: Alone Feels Safe at Home: Yes Safety Concerns: Feels Safe At This Time Assistive Devices: None Review of Systems Review of Systems: See HPI Physical Exam Physical Exam: Constitutional: NAD. Alert. Answering questions appropriately. Respiratory: Breathing is even, non-labored. Lungs bowens are clear to auscultation anteriorly. Cardiovascular: Regular Rate and Rhythm, no murmurs, rubs or gallops appreciated. Gastrointestinal (Abdomen): Normoactive bowel sounds x4, soft. Mildly distended consistent with ascites. Musculoskeletal: Lying in bed comfortably. No peripheral edema. Results & Data Vital Signs (Past 12 Hours) Vital Signs Temp Pulse Pulse Resp BP BP Pulse Ox 01/03/25 08:00 87 01/03/25 07:32 97.9 F 92 H 16 98/60 L 100/47 L 95 01/03/25 03:02 98.2 F 89 16 100/65 96 O2 Del Method 01/03/25 08:00 01/03/25 07:32 Room Air 01/03/25 03:02 Room Air PG Care Time/CCT Total # of Minutes Spent Total Time Spent with Patient: Total time spent is greater than 50% in coordination of care (as documented) at patient's floor/unit and/or counseling patient: Coding Level of Care Code 06185 IN/OBS CONSULT LVL 4,60M Diagnoses Alcoholic cirrhosis K70.30 Alcohol abuse F10.10
[2025-01-03] MEDS: PHYTONADIONE 5 MG TAB PO ONE (13:24)
[2025-01-03] MEDS ORDERED: cefTRIAXone SODIUM 2,000 MG/50 ML BAG IV SCH (17:00)
[2025-01-04 06:36] LABS: Hematocrit (blood only) 31.0 % (37.0-47.0); Hemoglobin 10.7 g/dL (12.0-16.0); Mean Corpuscular Hemoglobin 36.3 pg (25.0-34.0); Mean Corpuscular Volume 105.1 fL (80.0-100.0); Platelet Count 203 K/uL (130-400); RDW Standard Deviation 58.4 fL (36.4-46.3); Red Blood Count 2.95 M/uL (4.20-5.40); White Blood Count 11.14 K/ul (4.8-10.8)
[2025-01-04 06:56] LABS: Alanine Aminotransferase 24.0 U/L (7-52); Albumin Globulin Ratio 0.5 (0.9-2); Albumin Level 2.4 gm/dl (3.4-5.0); Alkaline Phosphatase 118.0 U/L (34-104); Anion Gap 9.0 (3-11); Bilirubin,Total 4.8 mg/dl (0.2-1.0); Blood Urea Nitrogen 5.0 mg/dl (6-23); Calcium 8.3 mg/dl (8.6-10.3); Carbon Dioxide 23.0 mmol/L (21-32); Chloride 104.0 mmol/L (98-107); Creatinine Clr Calc Pharmacy 96.3 ml/min; Globulin 4.4 gm/dl (2.5-4.0); Glucose 79.0 mg/dl (70-99(Fasting)); Potassium 3.5 mmol/L (3.5-5.1); Sodium 136.0 mmol/L (136-145); Total Protein 6.8 gm/dl (6.0-8.3)
[2025-01-04] MEDS ORDERED: PHYTONADIONE 5 MG TAB PO ONE (07:00)
[2025-01-04 07:06] LABS: INR 1.8 (0.9-1.1); Prothrombin Time 18.8 Seconds (9.0-12.0)
[2025-01-04] MEDS: SPIRONOLACTONE 25 MG TAB PO SCH (07:54)
[2025-01-04] MEDS: FUROSEMIDE 20 MG TAB PO SCH (07:55)
--- NOTE | 2025-01-04 08:05 | Hospitalist Progress Note ---
Date of Service January 04, 2025 Assessment & Plan (1) SBP (spontaneous bacterial peritonitis): (2) Abdominal pain: (3) Alcoholic cirrhosis: (4) Alcohol abuse: Plan 64F with newly diagnosed alcoholic cirrhosis with SBP presents as recc by her PCP; diagnostic paracentesis performed in ED; started on IV Rocephin, Protonix. MRCP ordered; NPO and GI Consult. #Alcohol Cirrhosis #Alcohol Hepatitis -Diagnosed on admission -Drinks about 7-8 alcoholic beverages per day. last drink was over a week ago -S/p diagnostic paracentesis on 12/23 -Peritoneal fluid with only 8% PMNs, WBC 227; SBP rule dout -No asterixis or confusion to suggest hepatic encephalopathy -No s/s acute blood loss to suggest variceal bleeding Plan -Continue on aldactone/lasix with a ratio of 5/2--- aldactone 50mg daily+ lasix 20mg daily if blood pressure tolerates. -Continue lactulose with goal of 2-3 loose BMs per day -She will need OP endoscopy for variceal surveillance -GI consulted; given Vit K; recommended portal vein Doppler; awaiting resuls -Resume diet. no indication for emergent endoscopy #Alcohol abuse -Last drink 1 week ago -Out of withdrawal window and no s/s withdrawal -She stated she will completely stop drinking #GERD -PPI Time spent evaluating patient, direct bedside care, chart review, placing orders, interpretation of diagnostic studies, discussion with consultants, patient, and family members, as well as other required patient management activities is 50 minutes Please note the above document was generated using voice recognition software. It may contain grammatical, syntax or spelling errors. Any formal questions or concerns about the content, text or information contained within the body of this dictation should be directly addressed to the provider for clarification Admission and Anticipated Discharge Date Admission Date: January 02, 2025 Subjective Patient seen and examined at bedside. She is comfortable; not in distress. She denies abdominal pain, discomfort, fever, chills, chest pain or shortness of breath. No significant events overnight Review of Systems Review of Systems: All systems reviewed & are unremarkable except as noted in Subjective Physical Exam Physical Exam: Constitutional: WD/WN, vitals as above, NAD, sitting up in bed, pleasant, conversing easily Respiratory: normal respiratory effort, lungs clear to auscultation, no wheeze, rales, rhonchi. Normal insp/exp effort, no accessory muscle use Cardiovascular: RRR, no murmur, no edema Vessels: no JVD or carotid bruit Chest: normal inspection of chest Abdomen: slightly distended- nontender Musculoskeletal: no cyanosis or clubbing, extremities motor strength 5/5 Skin: no rashes, warm and dry normal turgor Neurologic: PERRL, EOMI, accommodation nl, no face palsy, no dysarthria CN's II- XI intact bilaterally and moves all extremities Psychiatric: A+Ox3, euthymic affect Results & Data Results & Data Vital Signs (Past 12 Hours) Vital Signs Temp Pulse Pulse Resp BP BP Pulse Ox 01/04/25 04:03 36.8 C 89 16 94/58 L 93 01/03/25 23:02 36.7 C 90 18 104/65 92 01/03/25 21:52 89 O2 Del Method 01/04/25 04:03 Room Air 01/03/25 23:02 Room Air 01/03/25 21:52
--- NOTE | 2025-01-04 08:49 | Ultrasound Report ---
EXAM: US duplex portal hepatic veins CLINICAL HISTORY: Evaluate for hepatic,PV SV thrombosis. TECHNIQUE: Duplex study of the hepatic veins, hepatic artery, portal vein and its branches.One or more of the following were performed- spectral analysis, resistive index, waveform analysis, and pulsed Doppler COMPARISON: None. FINDINGS: The main portal vein is patent, showing normal flow with a velocity measuring 28.7 cm/sec. Right portal branch is patent, showing normal flow with a velocity measuring 12.6 cm/sec. Left portal branch is patent, showing normal flow with velocity measuring 17.3 cm/sec. The hepatic artery is patent, showinga biphasic flow pattern with PSV measuring 214 cm /sec. The hepatic veins are patent with a normal flow pattern. The splenic vein is patent with normal flow. Mild perihepatic ascites. IMPRESSION: 1. Preserved flow of the splenic vein, hepatic veins, hepatic artery, portal vein and its branches with no evidence of thrombosis. 2. Mild perihepatic ascites. Electronically signed by Gilberto Morales 01-04-2025 08:48 AM
--- NOTE | 2025-01-04 09:01 | Ultrasound Report ---
EXAM: US gallbladder CLINICAL HISTORY: Distended gallbladder on MRI. TECHNIQUE: Limited ultrasound of the liver and gallbladder was performed in greyscale and Doppler. Multiple images were obtained in transverse and longitudinal planes. COMPARISON: Previous MRI abdomen report dated 01/02/25was reviewed. FINDINGS: Liver: Liver size: in measuring 18.49 cm with increased echotexture. Right lobe cyst measuring 1.0 x 1.24 x 1.39 cm. Hepatic vasculature appears normal. Mild perihepatic free fluid. Gallbladder: Gallbladder size: Gallbladder is visualized and measures 6.21 cm in size. Multiple stones are seen, the wall measures 4.77 mm. Thickened gall bladder wall reaching 5.6 mm. Biliary Tree: Common bile duct diameter: 6.81 mm. No evidence of choledocholithiasis or biliary obstruction. IMPRESSION: 1. Calcular gall bladder with mild wall thickening, could be representing cholecystitis (stable), needs clinical correlation. 2. Mild hepatomegaly with increased echopattern, likely due to diffuse fatty infiltration (stable). 3. Right hepatic lobe cyst (mentioned in the previous report as multiple cysts). 4. Mild perihepatic free fluid (previously mentioned as large amount in the previous report). Electronically signed by Gilberto Morales 01-04-2025 09:00 AM
[2025-01-04 10:37] LABS: Hepatitis A Antibody IgM NON-REACTIVE (NON-REACTIVE); Hepatitis B Core Antibody IgM NON-REACTIVE (NON-REACTIVE)
--- NOTE | 2025-01-04 12:21 | Gastroenterology Progress Note ---
Date of Service January 04, 2025 Assessment & Plan (1) Alcoholic cirrhosis: (2) Alcohol abuse: Plan 64yowf with h/o alcohol abuse anxiety and GERD is seen today on GI inpatient rounds for diagnosis of alcoholic cirrhosis, SBP and CBD stones. Clinically she reports a progression of abdominal pain, jaundice and anasarca over the last [address] abd/pelvis, US consistent with cirrhosis and portal hypertension. GI was consulted regarding new onset cirrhosis/Alcoholic hepatitis. (3) Alcoholic Cirrhosis/? Alcoholic Hepatitis. - INTAKE CALCULATIONS - Maddrey Discriminant Score 43 r/t elevated PT and Bilirubin. MELD Na 22. Plan to re-calculate these tommorow. - Labs Today - T-Bili 4.8, AST 76, ALT 24, Alk Phos 118, Albumin 2.4, PT 18.8, INR 1.8. ALL improved from yesterday. - Clinically she feels her abdomen is softer with less edema. No concerns today. - Continue with Spironolactone 50mg/day and Lasix 20mg/day for ascites/fluid management. Follow < 2G sodium diet. - No prior or current history of hepatic encephalopathy or confusion. No asterixis. - We'll obtain alpha fetoprotein to bring HCC surveillance UTD. - Would recommend EGD as outpatient for variceal screening. - She can have these done with her [facility] Service Girl. - We'll continue to follow along with labs with further recommendations to follow. - Thank you for allowing us to participate in the care of this patient. Please call with any acute changes, questions or concerns. Please see addendum below with additional recommendation from my supervising physician. Admission and Anticipated Discharge Date Admission Date: January 02, 2025 Supervising Physician Co-Signing Physician Notes Patient examined at the bedside patient feels better. She notes some decrease in her leg edema. Less abdominal distention. Less right upper quadrant pain. Ultrasound shows minimal gallbladder wall thickening this is consistent with her cirrhosis and alcohol hepatitis. Her INR and bilirubin levels are improving. Discriminatory factor still above 32 though we will continue to hold on steroids as long as her LFTs are improving. Discussed long-term management of cirrhosis and acute alcoholic hepatitis of course both require lifetime alcohol abstinence patient is prepared to do this. Diuretics and salt restriction for the ascites. Should have follow-up with hepatology at discharge. She does see physicians in the [facility]. Of note the ultrasound Dopplers do not show splenic vein thrombosis and portal a nd hepatic veins are patent. Subjective 64yowf with h/o alcohol abuse anxiety and GERD is seen today on GI inpatient rounds for diagnosis of alcoholic cirrhosis and suspected alcoholic hepatitis. Acute Jaundice/Ascites - - She reports that she started to feel well over the last 3 weeks with jaundice, increased abdominal pain pain in right upper quadrant, increased abdominal girth and edema. -Symptoms gradually progressed in severity during that time. She saw her PCP at [facility] where they completed an US and CT scan of abdomen that revealed concerns of ascites and cirrhosis so she was recommended to come to ER. ER notes are in draft status at this time. - Reviewed ER work up which consisted of MRCP without contrast. Which revealed CBD 5mm. No stone was noted within the duct per attending Service Girl read. Distended gallbladder with cholelithiasis. Nodular contour of liver consistent with liver cirrhosis/hepatocellular disease. - CT abd/pelvis with and without contrast and US completed at [facility] 12/30/24 revealing 3.5cm low density nonenhancing area abutting the intrahepatic IVC favored to reflect a more pronounced area of hepatic steatosis. No arterial enhancing lesions. CBD 7mm. Cholelithiasis. Moderate volume ascites. Apparent splenic vein thrombosis. Pancreas unremarkable. Subtle hepatic contour nodularity suggesting cirrhosis. Spleen 15.4cm. Intrabdominal varices and mildly enlarged lymph nodes noted as well consistent with cirrhosis and portal hypertension. - Labs Today - T-Bili 4.8, AST 76, ALT 24, Alk Phos 118, Albumin 2.4, PT 18.8, INR 1.8. ALL improved from yesterday. - Clinically she feels her abdomen is softer with less edema. No concerns today. - She denies any vomiting, melena, hematochezia, steatorrhea. Family history - No liver disease or CA. Social History - Drinking 7 glasses wine or coolers a day most of her adult life. No tobacco or drug use. Surgical History - Appendectomy. Hysterectomy. No C sections. CBC Hgb 10.1, Hct 28.1 Platelet 191 WBC 12.5. Peritoneal fluid - WBCs - 227. 8% Neutrophils. PMNs 18. No growth noted on cultures thus far. Intake Labs Results - (See Todays above in HPI) INR 2.0 PT 20.3s T-Bili 5.7 Maddreys Discriminant Score 43.9 - Poor Prognosis MELD - 22 Creatinine - 0.58 Na- 136 AST 94 ALT 30 Alkaline Phosphatase 143. Albumin 2.6 Lipase 15 Ammonia 45. Hepatitis Bs Ag negative. Hepatitis C negative Hepatitis B core Ab negative. Hepatitis A pending. MRCP 01/02/25 FINDINGS: Exam is limited due to motion artifact. Exam is further limited due to lack of contrast. Bile ducts: The common bile duct measured 5 mm stone. No definite filling defect is noted.. ( Reviewed with attending Service Girl - No stone seen). Gallbladder: The gallbladder is distended containing a filling defects.. Liver: The liver is enlarged and of diffuse signal abnormality. There are rounded lesions within the liver, the largest of which measures 1.5 cm.. Pancreas: . No ductal dilation. Spleen: No splenomegaly. Adrenals: The adrenal glands are not clearly visualized. Kidneys and ureters: No hydronephrosis. Stomach and bowel: There is a small hiatal hernia. The stomach is decompressed. There is air and stool noted in the colon. Fluid: There is a large amount of free fluid in the upper abdomen. Soft tissues: There is soft tissue edema noted.. IMPRESSION: Limited exam. The gallbladder is distended containing calculi. The liver is enlarged and of diffuse signal at mild which may be due to fatty infiltration and/or hepatocellular disease. Lesions within the liver may represent cysts. Other possibilities cannot be excluded on this noncontrast study. Ascites. There is a small hiatal hernia. Possible anasarca. Physical Exam Physical Exam: Constitutional: NAD. Alert. Answering questions appropriately. Respiratory: Breathing is even, non-labored. Lungs bowens are clear to auscultation anteriorly. Cardiovascular: Regular Rate and Rhythm, no murmurs, rubs or gallops appreciated. Gastrointestinal (Abdomen): Normoactive bowel sounds x4, soft. Mildly distended consistent with ascites. Musculoskeletal: Lying in bed comfortably. No peripheral edema. Results & Data Results & Data Vital Signs (Past 12 Hours) Vital Signs Temp Pulse Resp BP BP Pulse Ox O2 Del Method 01/04/25 11:48 97.9 F 93 H 19 116/66 95 Room Air 01/04/25 08:33 98.2 F 84 18 114/68 94 Room Air 01/04/25 04:03 98.2 F 89 16 94/58 L 93 Room Air PG Care Time/CCT Total # of Minutes Spent Total Time Spent with Patient: Total time spent is greater than 50% in coordination of care (as documented) at patient's floor/unit and/or counseling patient: Coding Level of Care Code 33067 SUB INP/OBS CARE 3/50MIN Diagnoses Alcoholic cirrhosis K70.30 Alcohol abuse F10.10
[2025-01-04] MEDS: PHYTONADIONE 5 MG TAB PO ONE (14:19)
--- NOTE | 2025-01-05 06:05 | Electrocardiogram Report ---
Test Reason : Blood Pressure : */* mmHG Vent. Rate : 84 BPM Atrial Rate : 84 BPM P-R Int : 160 ms QRS Dur : 74 ms QT Int : 396 ms P-R-T Axes : 11 -3 225 degrees QTcB Int : 467 ms Normal sinus rhythm Low voltage QRS Anterior infarct , age undetermined Nonspecific T wave abnormality Abnormal ECG No previous ECGs available Confirmed by Robe Gonzalez ([id number]) on 01/05/2025 6:04:50 AM Referred By: Dasia Davis Confirmed By: Robe Gonzalez
[2025-01-05 06:38] LABS: Hematocrit (blood only) 27.7 % (37.0-47.0); Hemoglobin 9.8 g/dL (12.0-16.0); Immature Granulocytes # (auto) 0.04 K/uL (0.01-0.20); Immature Granulocytes % (auto) 0.4 %; Mean Corpuscular Hemoglobin 36.2 pg (25.0-34.0); Mean Corpuscular Volume 102.2 fL (80.0-100.0); Platelet Count 176 K/uL (130-400); RDW Standard Deviation 52.4 fL (36.4-46.3); Red Blood Count 2.71 M/uL (4.20-5.40); White Blood Count 11.34 K/ul (4.8-10.8)
[2025-01-05 07:04] LABS: INR 1.8 (0.9-1.1); Prothrombin Time 18.5 Seconds (9.0-12.0)
[2025-01-05 07:05] LABS: Alanine Aminotransferase 21.0 U/L (7-52); Albumin Globulin Ratio 0.5 (0.9-2); Albumin Level 2.0 gm/dl (3.4-5.0); Alkaline Phosphatase 101.0 U/L (34-104); Anion Gap 6.0 (3-11); Bilirubin,Total 4.4 mg/dl (0.2-1.0); Blood Urea Nitrogen 4.0 mg/dl (6-23); Calcium 7.8 mg/dl (8.6-10.3); Carbon Dioxide 26.0 mmol/L (21-32); Chloride 103.0 mmol/L (98-107); Creatinine Clr Calc Pharmacy 104.9 ml/min; Globulin 4.0 gm/dl (2.5-4.0); Glucose 89.0 mg/dl (70-99(Fasting)); Potassium 3.3 mmol/L (3.5-5.1); Sodium 135.0 mmol/L (136-145); Total Protein 6.0 gm/dl (6.0-8.3)
[2025-01-05 08:22] VITALS: RESP 18; TEMP 98.2; O2SAT 97
[2025-01-05] MEDS: POTASSIUM CHLORIDE CRTAB 20 MEQ TABCR PO STA (08:48)
--- NOTE | 2025-01-05 09:36 | Discharge Summary ---
Date of Service January 05, 2025 Admission HPI Per Admitting Provider Ms. Limon is a 64 year old female that presented to the [facility] as recommended by her PCP Dr. Davis. She has newly diagnosed alcoholic liver cirrhosis. She has moderate ascites, jaundice, splenomegaly, and dilated CBD measuring 7mm. Additional PMH includes alcohol abuse, depression and GERD. Reportedly, she states that she started to have abdominal bloating and generalized abdominal pain with bilateral lower extremity swelling a few weeks ago, prompting her to go to her PCP. In the ED, she has leukocytosis 16.09, Total Bilirubin 5.4, Direct Bilirubin 2.5, hypokalemia 3.4. A CTAP was performed on 12/30 as an outpatient and indicative of cirrhotic liver and portal hypertension; moderate ascites and splenomegaly She reportedly has drank 2-3 spritzers in the early afternoon followed by ONE bottle of wine nightly for the last decade; having not missed many days of drinking. Her last drink was 7 days ago. She has not had any symptoms of alcohol withdrawal; no tremors, or agitation. She does not have the urge to drink at this time. She wishes to stop completely and was unaware of how things were progressing negatively. On examination she is AAOx3, able to hold meaningful conversation, has jaundiced sclera; leathery skin, ankle edema, Lungs CTA, faint S1/S2, (+) fluid wave test Patient will be admitted for further evaluation and management of her alcohol cirrhosis with SBP; continue IV Rocephin, Protonix IV, Hepatitis panel, replenish K+, keep NPO for now, MRCP ordered and formal GI Consult placed. Please see A/P for further details. Admission Exam Per Admitting Provider Neuro: AAOx4, PERRLA, no aphagia, memory changes, CNII-XII grossly intact (+) sclera jaundice HEENT: head normocephalic, moist mucus membranes CV: S1/S2, (-) M/G/R, (+) LE BL edema, cap refill < 3 seconds Resp: Lungs CTA in all bowens. On RA GI: Abdomen distended, tender on palpation, (+) fluid wave test, Ax4 bowel sounds, (-) CVA tenderness Musculoskeletal: 5/5 B/L UE strength, 5/5 B/L LE strength. No gait disturbance Skin: (-) rashes , (-) erythema. (+) leathery skin Psych: euthymic mood Principal Diagnosis #Alcohol Cirrhosis #Alcohol Hepatitis Discharge Exam Constitutional: WD/WN, vitals as above, NAD, sitting up in bed, pleasant, conversing easily Respiratory: normal respiratory effort, lungs clear to auscultation, no wheeze, rales, rhonchi. Normal insp/exp effort, no accessory muscle use Cardiovascular: RRR, no murmur, no edema Vessels: no JVD or carotid bruit Chest: normal inspection of chest Abdomen: slightly distended- nontender Musculoskeletal: 1 Plus pitting edema present bilaterally LE Skin: no rashes, warm and dry normal turgor Neurologic: PERRL, EOMI, accommodation nl, no face palsy, no dysarthria CN's II- XI intact bilaterally and moves all extremities Discharge Data Allergies Allergy/AdvReac Type Severity Reaction Status Date / Time No Known Allergies Allergy Unverified 01/02/25 17:13 Consultations 01/02/25 17:09 ED Decision to Admit Stat 01/02/25 17:53 Consult Gastroenterology Routine Ordered Studies 01/02/25 16:26 MRI MRCP [MR MRCP] Stat 01/04/25 US duplex portal hepatic veins Routine US gallbladder Routine Hospital Course (1) Abdominal pain: (2) Alcoholic cirrhosis: (3) Alcohol abuse: Plan 64F with newly diagnosed alcoholic cirrhosis with SBP presents as recc by her PCP; diagnostic paracentesis performed in ED. Admitted to medical floor for further evaluation #Alcohol Cirrhosis #Alcohol Hepatitis -Diagnosed on admission -Drinks about 7-8 alcoholic beverages per day. last drink was over a week ago -S/p diagnostic paracentesis on 12/23 -Peritoneal fluid with only 8% PMNs, WBC 227; SBP rule dout -No asterixis or confusion to suggest hepatic encephalopathy -No s/s acute blood loss to suggest variceal bleeding Plan During the hospitalization, patient was admitted to medical floor. GI was consulted for comanagement. Diagnostic paracentesis was done which rule out SBP. Patient was started on Lasix and spironolactone which resulted in brisk diuresis with improvement in lower extremity edema. Patient was also started on lactulose. Patient was discharged home with prescription for oral Lasix, spironolactone, lactulose; patient to follow-up with PCP and obtain BMP. Patient will need referral to hepatology for further evaluation. #Alcohol abuse -Last drink 1 week ago -Out of withdrawal window and no s/s withdrawal -She stated she will completely stop drinking Discussed importance of abstinence Please note the above document was generated using voice recognition software. It may contain grammatical, syntax or spelling errors. Any formal questions or concerns about the content, text or information contained within the body of this dictation should be directly addressed to the provider for clarification Total Time Total Time Spent Total Time Spent (In Minutes): 56 Total Time Includes: Examination of the Patient, Discharge Planning, Medication Reconciliation, Communication With Other Providers and Other Discharge Plan Discharge Items Patient Disposition: Home - Self-Care Reason For Visit: WEAKNESS/ ABDOMINAL PAIN Discharge Diagnosis: #Alcohol Cirrhosis #Alcohol Hepatitis Activity: Resume your previous activity Non-emergency contact: Primary Care Provider Call non-emergency contact if: you have any medication questions and your symptoms worsen Follow-up/Referrals: Dasia Juarez MD [Primary Care Provider] - (Date & Time 01/10/2025 10:20 AM Provider: Gilberto Regan MD [facility] ) Diet: Regular Addtl Attending Provider Instructions: You were admitted to the hospital for concern of alcoholic hepatitis/cirrhosis. You are evaluated by GI provider during the hospitalization. Following medication are prescribed; Take Lasix 20 mg once a day Take spironolactone 50 mg once a day This medication are diuretics that makes you urinate more frequently and remove excess fluid/water. If you start to notice getting dizzy, low blood pressure; you have to hold off on this medication and talk with your primary care doctor. You have been prescribed potassium tablet as Lasix can lower potassium level. You have also been prescribed lactulose. The dose and the frequency of the lactulose should be based on your bowel movement. The goal here is to prevent constipation. An appointment will be set up with your primary care doctor for follow-up sometime next week.You will need a referral to a GI provider/hepatology. You will need endoscopy in the future. Pending Studies at Discharge: No Stand-Alone Forms: My [employer], Smoking Cessation Medications and DC Order Prescriptions: New furosemide 20 mg Tablet 20 mg PO QAM Qty: 30 0RF lactulose 10 gram/15 mL Solution 20 g PO DAILY Qty: 473 0RF spironolactone 50 mg tablet 50 mg PO DAILY Qty: 30 0RF potassium chloride 10 mEq tablet extended release 10 meq PO DAILY Qty: 30 0RF Continued omeprazole 20 mg capsule,delayed release(DR/EC) 20 mg PO DAILYBB escitalopram oxalate 10 mg tablet 10 mg PO QAM Discharge Orders: Discharge Order (Routine); Ordered 01/05/25 Ordered By: Jorge Luis Bourgeois Admission Data Admit Date/Time: 01/02/25 17:26 Attending Provider: Jorge Luis Bourgeois Admit Provider: Sergio Salgado Primary Care Provider: Dasia Juarez Other Providers: Sergio Salgado; Jaron Chu Other Interventions: Discharge Summary Assessment (RN) Last Done: 01/05/25 09:50
[2025-01-05 09:51] VITALS: BP 114/68; PULSE 92
== END 2025-01-05 11:02 | disposition home or self-care (01) | DRG 433 ==
LOC: ED 13:31 → 2E 17:26 → SUATTDRO 17:26 → 2E 19:24